=== PATIENT | male | born 1980 | race Caucasian/White ===

== ENCOUNTER 2022-02-15 15:45 | Emergency (ER) | payer BC, SELFPAY ==
[2022-02-15 15:56] VITALS: BP 146/94; PULSE 103; RESP 18; TEMP 37.7; O2SAT 100
--- NOTE | 2022-02-15 16:21 | ED.URI ---
HPI - URI/Sore Throat General Chief Complaint: Upper Respiratory Infection Stated Complaint: DRAINAGE/CONGESTION/SINUS PRESSURE/FEVER Time Seen by Provider: 02/15/22 16:10 Source: patient Mode of arrival: ambulatory Limitations: no limitations History of Present Illness HPI Narrative: Patient presents today with a 12 day history of cold symptoms to include nasal congestion and sinus pressure. Symptoms worsened 1 week ago and have been waxing and waning since that time to include fever up to 101. He has had 2- COVID-19 test in this time. He has been using Sudafed and Advil with mild relief. Related Data Allergies Allergy/AdvReac Type Severity Reaction Status Date / Time No Known Allergies Allergy Verified 02/15/22 16:24 Review of Systems Review of Systems: CONSTITUTIONAL: Denies body aches, chills, or sweats.+ fever EYES: Denies visual changes, redness, or discharge. ENT: Denies rhinorrhea, sore throat, or otalgia.+ congestion, sinus pressure CARDIOVASCULAR: Denies chest pain, palpitations, or edema. RESPIRATORY: Denies cough or dyspnea. GASTROINTESTINAL: Denies abdominal pain, nausea, vomiting, or diarrhea. GENITOURINARY: Denies dysuria or hematuria. SKIN: Denies rash, itching, or wounds. MUSCULOSKELETAL: Denies back pain, joint pain, or myalgia. NEUROLOGIC: Denies headache, numbness, tingling, or weakness. PSYCH: Denies depression or anxiety. PMFSH Comments At time of signature, I have reviewed and agree with nursing past medical, surgical, social and family history unless otherwise noted. Please see nursing chart for further information. There is no relevant family history pertinent to the presenting complaint Exam Narrative: GENERAL: Well-appearing, well-nourished, and in no acute distress. HEAD: Normocephalic, atraumatic. EYES: EOMI. No redness or drainage. Conjunctivae normal. ENT: Mucous membranes pink and moist. Nares congested. Frontal and maxillary sinus tenderness bilaterally. No rhinorrhea. TMs normal bilaterally. Hypertrophic tonsils. Throat normal. Uvula midline. NECK: Normal AROM. Supple. No lymphadenopathy. CHEST: No respiratory distress. Clear to auscultation. HEART: Regular rate and rhythm. No murmur appreciated. Normal peripheral pulses. EXTREMITIES: Normal range of motion. No edema. SKIN: Warm, dry, no rash. Capillary refill normal. Normal skin turgor. NEURO: No focal deficits. Alert and oriented x3. Gait steady. PSYCH: Normal affect. No signs of depression or anxiety. Course Course Level of Care: Express Care Visit Vital Signs Vital signs: Vital Signs Temperature 99.9 F H 02/15/22 15:56 Pulse Rate 103 H 02/15/22 15:56 Respiratory Rate 18 02/15/22 15:56 Blood Pressure 146/94 H 02/15/22 15:56 Pulse Oximetry 100 02/15/22 15:56 Oxygen Delivery Room Air 02/15/22 15:56 Temperature 99.9 F H 02/15/22 15:56 Pulse Rate 103 H 02/15/22 15:56 Respiratory Rate 18 02/15/22 15:56 Blood Pressure 146/94 H 02/15/22 15:56 Pulse Oximetry 100 02/15/22 15:56 Oxygen Delivery Room Air 02/15/22 15:56 Reviewed. Pt has been instructed to follow up with his PCP regarding his elevated blood pressure today. MDM - URI/Sore Throat Differential Diagnosis Differential diagnosis: Likely upper respiratory infection, sinusitis and viral infection Critical Care Time Critical Care Time Critical Care Time: No Discharge Plan Discharge Clinical Impression: Acute bacterial sinusitis Patient Disposition: Home, Self-Care Condition: Stable Instructions: Antibiotic Form, Sinusitis (ED) Additional Instructions: Please take the Augmentin and prednisone as directed. You may continue [id number] medications as well if needed. Follow-up with your doctor next week if symptoms are not improving. Your blood pressure was elevated above 120/80 today at Urgent Care. This puts you above the threshold for follow up. Please schedule a followup visit with your personal p
== END 2022-02-15 16:29 | disposition home or self-care (01) ==
PROVIDERS: Emergency Provider Nurse Practitioner
DX: J01.90 Acute sinusitis, unspecified (principal)
CPT/HCPCS: 99213; G0463